=== PATIENT | female | born 1950 | race Two or more races ===

== ENCOUNTER 2021-06-06 11:26 | Outpatient (CLI) | payer MEDICARE, OTHER ==
[2021-06-14] MEDS ORDERED: ASPI-992 PO (08:20)
[2021-06-14] MEDS ORDERED: RIVA10TA PO (08:20)
[2021-06-14] MEDS ORDERED: ONDA4TAB5 PO (11:10)
== END 2021-06-06 23:59 | disposition home or self-care (01) ==
LOC: LAB 11:26
PROVIDERS: ATTEND Specialist
DX: Z01.812 Encounter for preprocedural laboratory examination (principal); Z20.822 Contact with and (suspected) exposure to COVID-19
CPT/HCPCS: C9803; U0003

== ENCOUNTER 2021-06-12 05:02 | Inpatient (IN) | payer MEDICARE, OTHER ==
[~2021-06-12] VITALS: Ht 152.4 cm; Wt 72.6 kg
--- NOTE | 2021-06-12 05:18 | NUR ---
MS RN ADMITTING PATIENT CAME IN AT THIS TIME, AMBULATORY. A/OX4. FARSI SPEAKING ONLY. HAD TO CALL [facility] FOR ADMISSION PROCESS. PATIENT HAS NO S/S OF APPARENT DISTRESS AND DENIES PAIN. PATIENT WISHES TO BE FULL CODE AT THIS TIME. PATIENT DENIES ANY HISTORY AND REPORTS BEING ALLERGIC TO CEPHALEXIN. PER PATIENT, SHE HAS BEEN NPO SINCE MIDNIGHT. AWARE OF RIGHT TOTAL KNEE ARTHROPLASTY PROCEDURE FOR TODAY. CONSENT SIGNED. CHECK LIST DONE AND COMPLETED. ID BAND ON. WILL CONTINUE WITH CARE PLAN.
[2021-06-12] MEDS ORDERED: ANESTHESIA TRAY IN PYXIS 1 EA TRAY MC ONE (06:15)
[2021-06-12] MEDS ORDERED: POLYMYXIN B SULFATE 500,000 UNITS ONE (06:16)
[2021-06-12] MEDS ORDERED: BUPIVACAINE 0.5 % PF 150 MG/30 ML VIAL ONE ×2 (06:16→07:05)
--- NOTE | 2021-06-12 06:30 | NUR ---
MS RN NOTE PATIENT TAKEN DOWN BY OR AT THIS TIME.
[2021-06-12 06:34] VITALS: BP 154/73
[2021-06-12] MEDS ORDERED: HYDROMORPHONE INJ 2 MG/ML DISP.SYRIN ONE (07:00)
[2021-06-12] MEDS ORDERED: CLINDAMYCIN 900 MG/6 ML VIAL ONE (07:00)
[2021-06-12] MEDS ORDERED: TRANEXAMIC ACID 3,000 MG in SODIUM CHLORIDE IRRIG SOLUTION 70 ML IR ONE (07:30)
--- NOTE | 2021-06-12 07:30 | NUR ---
REPORT GIVEN TO ANGI FOR CONTINUITY OF CARE.
--- NOTE | 2021-06-12 08:07 | NUR ---
MS/RN OPENING NOTE PATIENT CURRENTLY IN DAY SURGERY AND NOT IN ROOM AT THIS TIME.
[2021-06-12] MEDS ORDERED: DULCOLAX 10 MG/SUPP.RECT RC PRN (09:00)
[2021-06-12] MEDS ORDERED: COLACE 250 MG CAPSULE PO PRN (09:00)
[2021-06-12] MEDS ORDERED: TYLENOL 650 MG TABLET PO PRN (09:00)
[2021-06-12] MEDS ORDERED: SENOKOT 8.6 MG TABLET PO PRN (09:00)
[2021-06-12] MEDS ORDERED: AMBIEN 5 MG TABLET PO PRN (09:00)
--- NOTE | 2021-06-12 09:50 | NUR ---
M/S RN NOTES RECEIVED PATIENT FROM OR. S/P R KNEE REPLACEMENT SURGERY W/ . PATIENT IS A/O X4. PATIENT FAMILY MEMBER CURRENTLY AT BEDSIDE. VITAL SIGNS FOLLOWS 151/78, HR 60, 97.7, RR 18,O2 SAT 97% ON ROOM AIR. NO COMPLAINTS OF PAIN AT THIS TIME.WILL CONTINUE TO MONITOR Pt.
[2021-06-12 10:00] VITALS: BP 133/86
[2021-06-12] MEDS ORDERED: HYDROCODONE/APAP 5/325MG TABLET PO PRN ×2 (10:00→13:00)
[2021-06-12] MEDS ORDERED: DONE10TA44 PO (11:26)
[2021-06-12] MEDS ORDERED: ICOS1CAP PO (11:26)
[2021-06-12] MEDS ORDERED: FENO160T PO (11:26)
[2021-06-12] MEDS ORDERED: ASPI-1169 PO (11:26)
[2021-06-12] MEDS ORDERED: FLUO20CA42 PO (11:26)
[2021-06-12] MEDS ORDERED: ATOR20TA PO (11:26)
[2021-06-12] MEDS ORDERED: PROP10TA10 PO (11:26)
[2021-06-12] MEDS ORDERED: FINA5TAB11 PO (11:26)
[2021-06-12] MEDS ORDERED: CYCL30DR EACHEYE (11:26)
[2021-06-12] MEDS ORDERED: MEMA10TA56 PO (11:26)
[2021-06-12] MEDS ORDERED: ALPR1TAB7 PO (11:26)
[2021-06-12] MEDS ORDERED: PANTOPRAZOLE 40 MG TABLET.DR PO SCH (12:00)
[2021-06-12] MEDS ORDERED: MAGNESIUM HYDROXIDE 30 ML UDC PO PRN (12:30)
[2021-06-12] MEDS ORDERED: ACETAMINOPHEN 325 MG TABLET PO PRN (12:30)
[2021-06-12] MEDS ORDERED: MAG HYDROX/AL HYDROX/SIMETH 30 ML UDC PO PRN (12:30)
[2021-06-12] MEDS ORDERED: ONDANSETRON HCL/PF 4 MG/2 ML VIAL IVP PRN (12:30)
[2021-06-12] MEDS ORDERED: Z GUARD REMEDY 2 OZ OINT TP PRN (12:30)
[2021-06-12] MEDS: IV D5/0.45 NACL 1,000 ML IV PRN (12:45)
[2021-06-12] MEDS: CLINDAMYCIN 600 MG in IV D5W 50 ML IV SCH ×2 (12:45→19:00)
[2021-06-12] MEDS ORDERED: PANTOPRAZOLE 40 MG TABLET.DR PO ONE (13:00)
[2021-06-12] MEDS ORDERED: ALPRAZOLAM 1 MG TABLET PO PRN (13:00)
[2021-06-12] MEDS ORDERED: oxyCODONE IR immediate release 5 MG PO ONE (14:57)
[2021-06-12] MEDS ORDERED: ANCEF 1 G in IV D5W 50 ML IV SCH (15:00)
[2021-06-12] MEDS ORDERED: oxyCODONE IR immediate release 5 MG PO PRN (15:00)
[2021-06-12] MEDS ORDERED: LEVOFLOXACIN 500 MG /D5W 100ML 500 MG in PREMIX 1 EA IV ONE (15:00)
[2021-06-12] MEDS ORDERED: diphenhydrAMINE HCL 25 MG CAPSULE PO PRN (15:30)
[2021-06-12] MEDS ORDERED: MENTHOL/CETYLPYRD (CEPACOL) 1 LOZ LOZENGE PO PRN (15:30)
[2021-06-12] MEDS: ZOFRAN 4mg/2ML IV PRN (15:44)
[2021-06-12 16:00] VITALS: BP 118/67
[2021-06-12] MEDS: VASCEPA 1 GM PO SCH (16:58)
[2021-06-12] MEDS ORDERED: PRILOSEC 20 MG PO SCH (17:00)
[2021-06-12] MEDS ORDERED: ALPRAZOLAM 1 MG TABLET PO SCH (17:00)
[2021-06-12] MEDS: MEMANTINE HCL 5 MG TABLET PO SCH (17:01)
[2021-06-12] MEDS: PROPRANOLOL HCL 10 MG TABLET PO SCH (17:02)
--- NOTE | 2021-06-12 18:53 | NUR ---
RN CLOSING NOTES PATIENT IN BED SLEEPING, AWAKENS TO VERBAL STIMULI. A/O x4. NO S/S OF PAIN NOTED AT THIS TIME. Pt IS ON ROOM AIR AND TOLERATING WELL. NO SIGNS OF SHORTNESS OF BREATH NOTED. Pt HAS IV ACCESS ON L UPPER ARM, MIDLINE, PATENT , INTACT, & FLUSHES WELL. SAFETY PRECAUTIONS IN PLACE: BED LOCKED AND IN LOWEST POSITION. DAUGHTER CURRENTLY AT BEDSIDE. CALL LIGHT AND BEDSIDE TABLE WITHIN REACH. WILL ENDORSE PATIENT TO SLAT BASKET MAKER HELPER. Addendum: 06/12/21 at 1907 by MAVERICK BENRABE RN CORRECTION: IV R HAND 18 G
[2021-06-12] MEDS: oxyCODONE IR immediate release 5 MG PO PRN (19:30)
--- NOTE | 2021-06-12 19:31 | NUR ---
ADMINISTERED OXY FOR PAIN PER MD ORDER. WILL CONTINUE TO MONITOR.
--- NOTE | 2021-06-12 19:48 | NUR ---
MS RN OPENING NOTES RECEIVED PT IN BED, AWAKE, WITH DAUGHTER AT BEDSIDE. AOx4, FARSI SPEAKING. ON RA AND TOLERATING WELL. NO SOB NOTED. NO S/SX OF RESPIRATORY DISTRESS NOTED. IV ACCESS IN R HAND #18 RUNNING D5 1/2NS @ 125 ML/HR. PATIENT STATES SHE HAS 6/10 PAIN PER DAUGHTER'S TRANSLATION. ALSO PROVIDED INCENTIVE SPIROMETER WITH EDUCATION AND DAUGHTER ASSISTED IN TRANSLATING. SAFETY PRECAUTIONS IN PLACE: BED IN LOWEST, LOCKED POSITION, SIDERAILS UPx2, AND BRAKES ON. TABLE AND CALL LIGHT WITHIN REACH. WILL CONTINUE TO MONITOR.
[2021-06-12 20:00] VITALS: BP 116/62
[2021-06-12] MEDS: RIVAROXABAN 10 MG TABLET PO SCH (20:49)
--- NOTE | 2021-06-12 23:28 | NUR ---
ADMINISTERED OXYCODONE FOR PAIN PER MD ORDER. VS WNL. WILL CONTINUE TO MONITOR.
[2021-06-13] MEDS: CLINDAMYCIN 600 MG in IV D5W 50 ML IV SCH (00:39)
[2021-06-13] MEDS: IV D5/0.45 NACL 1,000 ML IV PRN ×3 (03:16→19:23)
[2021-06-13] MEDS ORDERED: PRILOSEC 20 MG PO SCH ×2 (05:41→05:48)
[2021-06-13] MEDS: oxyCODONE IR immediate release 5 MG PO PRN ×2 (06:01→09:47)
--- NOTE | 2021-06-13 06:01 | NUR ---
ADMINISTERED OXYCODONE FOR PAIN PER MD ORDER. VS WNL. WILL CONTINUE TO MONITOR.
[2021-06-13 06:35] LABS: BASOPHILS % (AUTO) 0.2 % (0.0-2.0); EOSINOPHILS % (AUTO) 0.4 % (0.0-6.0); HEMATOCRIT 28 % (33-45); HEMOGLOBIN 9.4 g/dL (11.5-14.8); LYMPHOCYTES # (AUTO) 1.8 K/uL (0.8-4.8); LYMPHOCYTES % (AUTO) 21.9 % (20.0-44.0); MEAN CORPUSCULAR HGB CONC 34 g/dl (31.0-36.0); MEAN CORPUSCULAR VOLUME 84 fL (82-100); MONOCYTES # (AUTO) 0.9 K/uL (0.1-1.30); MONOCYTES % (AUTO) 11.1 % (2.0-12.0); NEUTROPHILS # (AUTO) 5.4 K/uL (1.8-8.9); NEUTROPHILS % (AUTO) 66.4 % (43.0-81.0); PLATELET COUNT (AUTO) 237 K/uL (150-450); RED BLOOD CELL COUNT(AUTO) 3.32 MIL/uL (4.0-5.2); WHITE BLOOD COUNT (AUTO) 8.1 K/uL (4.3-11.0)
--- NOTE | 2021-06-13 06:54 | NUR ---
MS RN CLOSING NOTES PT IN BED, AWAKE. AOx4, FARSI SPEAKING. ON RA AND TOLERATING WELL. NO SOB NOTED. NO S/SX OF RESPIRATORY DISTRESS NOTED. IV ACCESS IN R HAND #18 RUNNING D5 1/2NS @ 125 ML/HR. TREATED PAIN THROUGHOUT SHIFT. ALL NEEDS MET. PT KEPT CLEAN AND DRY. PROVIDED INCENTIVE SPIROMETER WITH EDUCATION AND DAUGHTER ASSISTED IN TRANSLATING. SAFETY PRECAUTIONS IN PLACE: BED IN LOWEST, LOCKED POSITION, SIDERAILS UPx2, AND BRAKES ON. TABLE AND CALL LIGHT WITHIN REACH. WILL ENDORSE TO ONCOMING SHIFT FOR KEMAL.
[2021-06-13 07:09] LABS: THYROID STIMULATING HORMONE 0.531 uIU/mL (0.358-3.74)
[2021-06-13 07:17] LABS: CALCIUM, SERUM 8.3 mg/dL (8.5-10.1); CREATININE 0.8 mg/dL (0.6-1.3); MAGNESIUM 1.7 mg/dL (1.8-2.4); PHOSPHORUS 3.6 mg/dL (2.5-4.9)
--- NOTE | 2021-06-13 07:25 | NUR ---
MS RN OPENING NOTES RECEIVED PT IN BED AWAKE, A/O X4, FARSI SPEAKING, DENIES PAIN OR ANY DISCOMFORTS AT THIS TIME. RIGHT LEG WITH DRESSING C/D/I AND IMMOBILIZER IN PLACE. ON ROOM AIR, BREATHING EVEN AND UNLABORED. IV ACCESS ON R HAND G#18 RUNNING D5 1/2NS @ 125 ML/HR, NO S/SX OF INFILTRATION NOTED. SAFETY PRECAUTIONS IN PLACE: BED IN LOWEST, LOCKED POSITION, SIDE-RAILS UP x2, AND BRAKES ON. BEDSIDE TABLE AND CALL LIGHT WITHIN REACH. WILL CONTINUE TO MONITOR.
[2021-06-13] MEDS ORDERED: PANTOPRAZOLE 40 MG TABLET.DR PO SCH (07:30)
[2021-06-13 08:00] VITALS: BP 118/55
[2021-06-13] MEDS: FLUOXETINE HCL 20 MG CAPSULE PO SCH (08:12)
[2021-06-13] MEDS: DONEPEZIL 5 MG TABLET PO SCH (08:12)
[2021-06-13] MEDS: VASCEPA 1 GM PO SCH ×2 (08:12→17:09)
[2021-06-13] MEDS: FENOFIBRATE 160 MG PO SCH (08:12)
[2021-06-13] MEDS: MEMANTINE HCL 5 MG TABLET PO SCH ×2 (08:13→17:10)
[2021-06-13] MEDS: PROPRANOLOL HCL 10 MG TABLET PO SCH ×2 (08:13→17:10)
[2021-06-13] MEDS ORDERED: FINASTERIDE (5 MG) 5 MG TABLET PO SCH (09:00)
[2021-06-13] MEDS ORDERED: ASPIRIN 81 MG TAB.CHEW PO SCH (09:00)
[2021-06-13] MEDS ORDERED: MAGNESIUM OXIDE 400 MG TABLET PO ONE (09:30)
--- NOTE | 2021-06-13 09:51 | NUR ---
RN NOTES PT C/O RIGHT LEG PAIN, 5/10 SCALE, PRN OXY 10MG PO GIVEN AT 0947. WILL CONTINUE TO MONITOR AND REASSESS PT.
[2021-06-13] MEDS: ZOFRAN 4mg/2ML IV PRN ×3 (11:12→20:12)
--- NOTE | 2021-06-13 11:14 | NUR ---
MS RN NOTES PATIENT COMPLAINED OF NAUSEA AFTER PT ZOFRAN 4MG/2ML GIVEN ORDERED PRN IV PUSH AT 1112
[2021-06-13] MEDS: HYDROMORPHONE 1 MG/1 ML DISP.SYRIN IM/IV/SC PRN ×2 (11:40→20:05)
--- NOTE | 2021-06-13 15:27 | NUR ---
MS RN NOTE PATIENT HAS CPM MACHINE PLACED ONGOING BY PHYSICAL THERAPIST.
[2021-06-13] MEDS: PRILOSEC 20 MG PO SCH (16:15)
[2021-06-13 16:24] VITALS: BP 138/63
[2021-06-13] MEDS: RESTASIS EYE EACHEYE SCH (17:09)
[2021-06-13] MEDS: RIVAROXABAN 10 MG TABLET PO SCH (17:11)
--- NOTE | 2021-06-13 18:52 | NUR ---
MS RN CLOSING NOTES PT IN BED AWAKE AT THIS TIME, A/O X4, FARSI SPEAKING BUT UNDERSTANDS A LITTLE BIT OF UKRAINIAN. RIGHT LEG WITH DRESSING C/D/I AND IMMOBILIZER IN PLACE. ON ROOM AIR, BREATHING EVEN AND UNLABORED. IV ACCESS ON R HAND G#18 INTACT WITH IVF OF D5 1/2NS @ 125 ML/HR, NO S/SX OF INFILTRATION NOTED. ALL NEEDS AND CARE ATTENDED WELL. SAFETY PRECAUTIONS IN PLACE: BED IN LOWEST, LOCKED POSITION, SIDE-RAILS UP x2, AND BRAKES ON. BEDSIDE TABLE AND CALL LIGHT WITHIN REACH. WILL ENDORSE KEMAL TO PRESS ASSISTANT AND FEEDER NURSE
--- NOTE | 2021-06-13 19:15 | NUR ---
MS RN OPENING NOTES PT AWAKE IN BED, WITH DAUGHTER AT BEDSIDE. A/OX4, FARSI SPEAKING, UNDERSTANDS SOME GREEK. RESPIRATIONS EVEN/UNLABORED, ON ROOM AIR, MARIANELA. WELL. S/P R-TOTAL KNEE ARTHROPLASTY YESTERDAY, WITH R-LEG DRESSING C/D/I AND IMMOBILIZER IN PLACE. IV SITE: #18G INTACT/PATENT, RUNNING D5 1/2 NS @125ML/HR. PT IN NO ACUTE DISTRESS. SAFETY MEASURES IN PLACE, BED IN LOWEST LOCKED POSITION, S/R UPX2, CALL LIGHT WITHIN REACH. WILL CONT TO MONITOR.
[2021-06-13 20:00] VITALS: BP 136/69
[2021-06-13] MEDS ORDERED: ATORVASTATIN 10 MG TABLET PO SCH (22:00)
[2021-06-14] MEDS: HYDROMORPHONE 1 MG/1 ML DISP.SYRIN IM/IV/SC PRN ×3 (02:24→10:53)
[2021-06-14] MEDS: IV D5/0.45 NACL 1,000 ML IV PRN (04:34)
[2021-06-14] MEDS: PRILOSEC 20 MG PO SCH (06:05)
--- NOTE | 2021-06-14 06:49 | NUR ---
MS RN CLOSING NOTES PT RESTING IN BED, EASILY AROUSABLE TO STIMULI. NO C/O PAIN AT THIS TIME. ON ROOM AIR. RESPIRATIONS EVEN/UNLABORED. CONTINUES ON IVF OF D5 1/2 NS @125ML/HR. MARIANELA WELL. PT ASSISTED TO BEDSIDE COMMODE X5 THIS SHIFT. VOIDED ONLY. NO BM THIS SHIFT. NO ACUTE EVENTS DURING THE NIGHT. SAFETY MEASURES MAINTAINED. ALL NEEDS ATTENDED TO.
[2021-06-14 06:50] LABS: BASOPHILS % (AUTO) 0.3 % (0.0-2.0); EOSINOPHILS % (AUTO) 2.7 % (0.0-6.0); HEMATOCRIT 26 % (33-45); LYMPHOCYTES # (AUTO) 1.4 K/uL (0.8-4.8); LYMPHOCYTES % (AUTO) 16.1 % (20.0-44.0); MEAN CORPUSCULAR HGB CONC 34 g/dl (31.0-36.0); MEAN CORPUSCULAR VOLUME 83 fL (82-100); MONOCYTES # (AUTO) 0.8 K/uL (0.1-1.30); MONOCYTES % (AUTO) 9.7 % (2.0-12.0); NEUTROPHILS % (AUTO) 71.2 % (43.0-81.0); PLATELET COUNT (AUTO) 231 K/uL (150-450); RED BLOOD CELL COUNT(AUTO) 3.17 MIL/uL (4.0-5.2); WHITE BLOOD COUNT (AUTO) 8.4 K/uL (4.3-11.0)
--- NOTE | 2021-06-14 07:30 | NUR ---
MS RN OPENING NOTES RECEIVED PT AWAKE IN BED IN NO ACUTE SIGNS OF DISTRESS. A/O X4, FARSI SPEAKING, DENIES PAIN OR ANY DISCOMFORTS AT THIS TIME. DRESSING ON RIGHT LEG C/D/I WRAPPED WITH LYNDSEY BANDAGE. ON ROOM AIR, BREATHING EVEN AND UNLABORED. IV ACCESS ON R HAND G#18 RUNNING D5 1/2NS @ 125 ML/HR, NO S/SX OF INFILTRATION NOTED. SAFETY PRECAUTIONS IN PLACE: BED IN LOWEST, LOCKED POSITION, SIDE-RAILS UP X2. BEDSIDE TABLE AND CALL LIGHT WITHIN REACH. WILL CONTINUE TO MONITOR PT ACCORDINGLY..
[2021-06-14 07:55] LABS: CALCIUM, SERUM 8.6 mg/dL (8.5-10.1); CREATININE 0.8 mg/dL (0.6-1.3); PHOSPHORUS 2.7 mg/dL (2.5-4.9)
[2021-06-14 08:00] VITALS: BP 132/67
[2021-06-14] MEDS: DONEPEZIL 5 MG TABLET PO SCH (08:15)
[2021-06-14] MEDS: MEMANTINE HCL 5 MG TABLET PO SCH (08:15)
[2021-06-14] MEDS: FLUOXETINE HCL 20 MG CAPSULE PO SCH (08:15)
[2021-06-14 08:16] VITALS: BP 132/67
[2021-06-14] MEDS: PROPRANOLOL HCL 10 MG TABLET PO SCH (08:16)
[2021-06-14] MEDS: VASCEPA 1 GM PO SCH (08:16)
[2021-06-14] MEDS: FENOFIBRATE 160 MG PO SCH (08:17)
[2021-06-14] MEDS: RESTASIS EYE EACHEYE SCH (08:17)
[2021-06-14] MEDS ORDERED: RIVA10TA PO (08:20)
[2021-06-14] MEDS ORDERED: ASPI-992 PO (08:20)
[2021-06-14] MEDS ORDERED: ONDA4TAB5 PO (11:10)
--- NOTE | 2021-06-14 13:44 | NUR ---
RN DISCHARGED NOTES PT DISCHARGED HOME WITH HOME HEALTH IN STABLE CONDITION. A/O X4. FARSI SPEAKING. V/S TAKEN, STABLE AND RECORDED. DRESSING ON RIGHT KNEE C/D/I WRAPPED WITH LYNDSEY BANDAGE. PT ABLE TO WALKED WITH FWW WITH PHYSICAL THERAPIST THIS MORNING. IV ACCESS ON RIGHT HAND REMOVED WITH NO ACTIVE BLEEDING NOTED, DRY PRESSURE DRESSING APPLIED AT SITE. HEALTH TEACHINGS /DISCHARGED INSTRUCTIONS GIVEN TO PT AND HER DAUGHTER WITH VERBALIZATION OF UNDERSTANDING. PT LEFT UNIT AT 1330 VIA GURNEY ACCOMPANIED BY 2 EMT'S FROM [facility]. CHARGE NURSE AWARE OF DISCHARGE. .
[2021-06-27] MEDS ORDERED: ASPIRIN 325 MG TABLET PO SCH (09:00)
== END 2021-06-14 13:30 | disposition home health service (06) | DRG 470 ==
LOC: DS 05:02 → MED 05:05
PROVIDERS: ADMIT Registered Nurse; ATTEND Registered Nurse
PROC: 0SRC0J9 Replacement of Right Knee Joint with Synthetic Substitute, Cemented, Open Approach (ICD-10-PCS; principal; 2021-06-12)
DX: M17.11 Unilateral primary osteoarthritis, right knee (principal); F03.90 Unspecified dementia, unspecified severity, without behavioral disturbance, psychotic disturbance, mood disturbance, and anxiety; F41.9 Anxiety disorder, unspecified; E66.9 Obesity, unspecified; E78.5 Hyperlipidemia, unspecified; I10 Essential (primary) hypertension; Z79.01 Long term (current) use of anticoagulants; Z68.31 Body mass index [BMI] 31.0-31.9, adult; I35.1 Nonrheumatic aortic (valve) insufficiency
CPT/HCPCS: 36415; 80048-TC; 80061-TC; 83735-TC; 84100-TC; 84443-TC; 85025-TC; 88305-TC; 88311-TC; 97110-TC; 97116-TC; 97530-TC; 97760-TC; A4216; A4217; C1713; C1776; G0378; J1100; J1170; J1885; J1956; J2405; J2704; J3490; J7030; J7050; J7060; L1830

== ENCOUNTER 2021-10-09 10:23 | Outpatient (CLI) | payer MEDICARE, OTHER ==
[~2021-10-09 10:23] MED LIST: ALPR1TAB7 PO; ASPI-1169 PO; ASPI-992 PO; ATOR20TA PO; CYCL30DR EACHEYE; DONE10TA44 PO; FENO160T PO; FINA5TAB11 PO; FLUO20CA42 PO; ICOS1CAP PO; MEMA10TA56 PO; ONDA4TAB5 PO; PROP10TA10 PO; RIVA10TA PO
== END 2021-10-09 23:59 | disposition home or self-care (01) ==
LOC: LAB 10:23
PROVIDERS: ATTEND Specialist
DX: Z01.812 Encounter for preprocedural laboratory examination (principal); Z20.822 Contact with and (suspected) exposure to COVID-19
CPT/HCPCS: C9803; U0003

== ENCOUNTER 2021-10-16 05:08 | Inpatient (IN) | payer MEDICARE, OTHER ==
[~2021-10-16] VITALS: Ht 160 cm; Wt 71.2 kg
[~2021-10-16 05:08] MED LIST changes: +ANESTHESIA TRAY IN PYXIS 1 EA TRAY MC ONE
[2021-10-16 05:30] VITALS: BP 139/73
--- NOTE | 2021-10-16 05:30 | NUR ---
MS OIL TRANSPORT DRIVER NOTES RECEIVED FROM HOME THIS 71 YO FEMALE,DANISH SPEAKING,ACCOMPANIED BY DAUGHTER,GOING FOR SURGERY OF LEFT KNEE BY DR SEGURA.PRE OP DONE,SALINE LOCK PLACE ON LEFT AC #20,NPO SINCE MIDNIGHT.WITH KNOWN ALLERGY TO CEPHALEXIN.DENIES PAIN AT THE MOMENT.CONSENT FOR SURGERY SIGNED BY PATIENT,ALONG WITH ANESTHESIA AND BLOOD TRANSFUSION FORM WAS SIGNED.CALL LIGHT IN REACH,NEEDS ANTICIPATED.
--- NOTE | 2021-10-16 06:15 | NUR ---
MS RN NOTES TRIMMING DEPARTMENT BLOCKER BY O.R.TECH BY BED THIS TIME,STABLE. WILL ENDORSE TO DAY NURSE FOR KEMAL.
[2021-10-16] MEDS ORDERED: POLYMYXIN B SULFATE 500,000 UNITS ONE (06:42)
[2021-10-16] MEDS ORDERED: BUPIVACAINE 0.5 % PF 150 MG/30 ML VIAL ONE (06:42)
[2021-10-16] MEDS ORDERED: HYDROMORPHONE INJ 2 MG/ML DISP.SYRIN ONE (06:49)
[2021-10-16] MEDS ORDERED: BUPIVACAINE MPF 0.5% W/EPI INJ 30 ML VIAL ONE (06:49)
[2021-10-16] MEDS ORDERED: TRANEXAMIC ACID 3,000 MG in SODIUM CHLORIDE IRRIG SOLUTION 70 ML IR ONE (07:00)
--- NOTE | 2021-10-16 07:47 | NUR ---
Patient not seen in the unit, per previous shift's endorsement patient is in OR right now for procedure.
[2021-10-16] MEDS ORDERED: MAGNESIUM HYDROXIDE 30 ML UDC PO PRN (08:30)
[2021-10-16] MEDS ORDERED: Z GUARD REMEDY 4 OZ OINT TP PRN (08:30)
[2021-10-16] MEDS ORDERED: MAG HYDROX/AL HYDROX/SIMETH 30 ML UDC PO PRN ×2 (08:30→12:00)
[2021-10-16] MEDS ORDERED: ACETAMINOPHEN 325 MG TABLET PO PRN (08:30)
[2021-10-16] MEDS ORDERED: ONDANSETRON HCL/PF 4 MG/2 ML VIAL IVP PRN (08:30)
[2021-10-16] MEDS ORDERED: ALPRAZOLAM 1 MG TABLET PO PRN (08:30)
[2021-10-16] MEDS ORDERED: Medication Not On Formulary EA (Ondansetron Hcl (Zofran) 1 TAB) PO SCH (08:30)
[2021-10-16] MEDS ORDERED: BUPIVACAINE 0.25% 75 MG/30 ML VIAL ONE (08:31)
[2021-10-16] MEDS ORDERED: FENTANYL PF 100MCG/2ML AMPUL ONE (09:06)
[2021-10-16] MEDS ORDERED: ONDANSETRON HCL/PF 4 MG/2 ML VIAL ONE (09:16)
[2021-10-16] MEDS ORDERED: BISACODYL SUPP (10 MG) 10 MG/SUPP.RECT SUPP.RECT RC PRN (09:30)
[2021-10-16] MEDS ORDERED: ZOLPIDEM TARTRATE 5 MG TABLET PO PRN (09:30)
[2021-10-16] MEDS ORDERED: SENNOSIDES 8.6 MG TABLET PO PRN (09:30)
[2021-10-16] MEDS ORDERED: DOCUSATE SODIUM 250 MG CAPSULE PO PRN (09:30)
[2021-10-16] MEDS ORDERED: HYDROMORPHONE 1 MG/1 ML DISP.SYRIN ONE (09:42)
[2021-10-16] MEDS ORDERED: diphenhydrAMINE HCL 50 MG/ML VIAL ONE (10:00)
--- NOTE | 2021-10-16 10:35 | NUR ---
Patient came back from surgery around 1035am, stable condition, no apparent distress noted, denies any pain or discomfort at this time, no shortness of breath, afebrile, no respiratory distress. Patient S/P left total knee arthroplasty, subcutaneous lateral release by Dr. Siegel. Patient's left lower extremity covered with estella bandage, no s/s of circulation impairment noted at this time, skin warm to touch, no pallor or cyanosis noted, pulse present during shift, no swelling, no bleeding, no unusual odor noted at this time. Patient came back with medication orders faxed to pharmacy by PACU nurse. Call light left within reach, will monitor closely for any changes.
--- NOTE | 2021-10-16 10:35 | NUR ---
Patient came back from surgery around 1035am, stable condition, no apparent distress noted, denies any pain or discomfort at this time, no shortness of breath, afebrile, no respiratory distress. Patient S/P left total knee arthroplasty, subcutaneous lateral release by Dr. Siegel. Patient came back with medication orders faxed to pharmacy by PACU nurse. Call light left within reach, will monitor closely for any changes.
[2021-10-16] MEDS: FINASTERIDE (5 MG) 5 MG TABLET PO SCH (11:05)
[2021-10-16] MEDS: FENOFIBRATE NANOCRYS (145 MG) 145 MG TABLET PO SCH (11:05)
[2021-10-16] MEDS: MEMANTINE HCL 5 MG TABLET PO SCH ×2 (11:05→16:51)
[2021-10-16] MEDS: FLUOXETINE HCL 20 MG CAPSULE PO SCH (11:05)
[2021-10-16] MEDS: PROPRANOLOL HCL 10 MG TABLET PO SCH ×2 (11:06→16:51)
[2021-10-16] MEDS: DONEPEZIL 5 MG TABLET PO SCH (11:06)
[2021-10-16] MEDS: ATORVASTATIN 10 MG TABLET PO SCH (11:06)
[2021-10-16] MEDS: IV D5/0.45 NACL 1,000 ML IV PRN (11:19)
[2021-10-16] MEDS ORDERED: MENTHOL/CETYLPYRD (CEPACOL) 1 LOZ LOZENGE PO PRN (12:00)
[2021-10-16] MEDS ORDERED: PANTOPRAZOLE 40 MG TABLET.DR PO SCH ×3 (12:00→17:00)
[2021-10-16] MEDS ORDERED: diphenhydrAMINE HCL 25 MG CAPSULE PO PRN (12:00)
[2021-10-16] MEDS ORDERED: oxyCODONE IR immediate release 5 MG PO PRN (12:00)
[2021-10-16] MEDS: ONDANSETRON HCL/PF 4 MG/2 ML VIAL IV PRN ×2 (12:16→20:21)
[2021-10-16] MEDS: ANCEF 1 GM/50 ML D5W IV SCH ×4 (15:35→23:05)
[2021-10-16 16:00] VITALS: BP 135/58
[2021-10-16] MEDS: HYDROMORPHONE 1 MG/1 ML DISP.SYRIN IM/IV/SC PRN ×3 (16:04→23:29)
[2021-10-16] MEDS: OMEPRAZOLE 20 MG PO SCH (16:41)
[2021-10-16] MEDS: DOCUSATE SODIUM 100 MG CAPSULE PO SCH (16:51)
--- NOTE | 2021-10-16 18:39 | NUR ---
RN CLOSING NOTES Patient lying in bed, no shortness of breath, respirations even and unlabored, remained afebrile during shift, no dizziness, no palpitations, no chest pain. All due medications given per MD order and tolerated well. Patient S/P left total knee arthroplasty, subcutaneous release today with Dr. Siegel, surgical site dressing clean, dry and intact, no unusual odor, no visible signs of bleeding on the dressing, site wrapped in estella bandage no s/s of circulation impairment noted at this time, skin warm to touch, no pallor or cyanosis noted, pulse present during shift, no swelling noted at this time. Patient encouraged to use incentive spirometer when awake. Pain medication given per MD order as needed when non pharmacological measures ineffective, noted with help. Kept clean and dry, call light left within reach, all needs attended, aspiration precautions observed at all times, kept head of bed elevated, safety precautions in place, frequent visual checks rendered, brakes locked, side rails up X 2, will endorse to next shift for continuity of care.
--- NOTE | 2021-10-16 19:30 | NUR ---
MS RN NOTES RECEIVED ON BED,WITH FAMILY MEMBERS AT BEDSIDE,A/O X3,STATUS LEFT KNEE ARTHROPLASTY,DRESSING INTACT AND DRY,ON KNEE IMMOBILIZER AT THE MOMENT,PRESENT IVF D5 1/2 NS AT 75ML/HR RATE INFUSING WELL ON LEFT AC SALINE LOCK,VIA IV PUMP.CALL LIGHT IN REACH,NEEDS ANTICIPATED.
[2021-10-16 20:00] VITALS: BP 131/63
--- NOTE | 2021-10-16 20:10 | NUR ---
MS RN NOTES C/O LEFT KNEE PAIN 8/10 ON PAIN SCALE.,MEDICATED WITH DILAUDID 0.5 MG IV ORDERED.WILL MONITOR FOR RELIEF.
--- NOTE | 2021-10-16 20:21 | NUR ---
MS RN NOTES FEELING NAUSEATED,ZOFRAN 4MG IV GIVEN ORDERED.HOB ELEVATED.
--- NOTE | 2021-10-16 23:00 | NUR ---
MS RN NOTES LAST DOSE OF IV ANCEF 1 GM SHAVON.
--- NOTE | 2021-10-16 23:29 | NUR ---
MS RN NOTES PAIN MANAGEMENT C.O LEFT KNEE PAIN 9/10 ON PAIN SCALE,DILAUDID 0.5MG IV GIVEN ORDERED.
[2021-10-17] MEDS: oxyCODONE IR immediate release 5 MG PO PRN ×3 (01:59→08:02)
--- NOTE | 2021-10-17 01:59 | NUR ---
MS RN NOTES AWAKE,JUST VOIDED PER BEDPAN.C/O LEFT KNEE PAIN 7/10 ON PAIN SCALE.OXY IR 10MG PO GIVEN ORDERED FOR MODERATE PAIN.MONITOR FOR NAUSEA.
[2021-10-17] MEDS: IV D5/0.45 NACL 1,000 ML IV PRN (02:49)
--- NOTE | 2021-10-17 04:51 | NUR ---
MS RN NOTES AWAKE,VOIDED PER BEDPAN.C/O PAIN 5/10 0N PAIN SCALE,OXY IR 10MG PO GIVEN ORDERED FOR MODERATE PAIN
--- NOTE | 2021-10-17 05:00 | NUR ---
MS RN NOTES PAIN MANAGEMENT DOCTOR CALLED,GAVE UPDATE IN REGARDS TO PATIENT PAIN MANAGEMENT,WITH ORDER TO CONVERT IV TO SALINE LOCK,NOTED AND CARRIED OUT.
--- NOTE | 2021-10-17 05:30 | NUR ---
MS RN NOTES MD VISIT SEEN BY DR DUONG,PAIN MANAGEMENT DOCTOR,WITH ORDERS NOTED AND CARRIED OUT.
[2021-10-17] MEDS ORDERED: ALPRAZOLAM 0.5 MG TABLET PO PRN (06:00)
[2021-10-17] MEDS: OMEPRAZOLE 20 MG PO SCH ×2 (06:13→16:30)
--- NOTE | 2021-10-17 06:13 | NUR ---
MS RN NOTES DUE OMEPRAZOLE 2 CAPSULE ADMINISTERED EARLY PER PATIENT REQUEST.
--- NOTE | 2021-10-17 06:18 | NUR ---
MS RN NOTES FAIRLY RESTED AT NIGHT,PAIN MANAGEMENT EFFECTIVE,IVF CONVERTED TO SALINE LOCK ORDERED BY DR DUONG.NAUSEA IMPROVED,NO VOMITING NOTED.ALL DUE MEDS ADMINISTERED,MORNING CARE RENDERED BY [address].CALL LIGHT IN REACH,NEEDS ATTENDED.WILL ENDORSE TO DAY NURSE FOR KEMAL.
[2021-10-17 07:27] LABS: BASOPHILS % (AUTO) 0.2 % (0.0-2.0); EOSINOPHILS % (AUTO) 2.2 % (0.0-6.0); HEMATOCRIT 25 % (33-45); HEMOGLOBIN 8.2 g/dL (11.5-14.8); LYMPHOCYTES # (AUTO) 1.3 K/uL (0.8-4.8); LYMPHOCYTES % (AUTO) 13.6 % (20.0-44.0); MEAN CORPUSCULAR HGB CONC 33 g/dl (31.0-36.0); MEAN CORPUSCULAR VOLUME 79 fL (82-100); MONOCYTES # (AUTO) 0.8 K/uL (0.1-1.30); MONOCYTES % (AUTO) 8.6 % (2.0-12.0); NEUTROPHILS # (AUTO) 7.3 K/uL (1.8-8.9); NEUTROPHILS % (AUTO) 75.4 % (43.0-81.0); PLATELET COUNT (AUTO) 233 K/uL (150-450); RED BLOOD CELL COUNT(AUTO) 3.15 MIL/uL (4.0-5.2); WHITE BLOOD COUNT (AUTO) 9.6 K/uL (4.3-11.0)
[2021-10-17 08:16] VITALS: BP 135/65
[2021-10-17] MEDS: FENOFIBRATE NANOCRYS (145 MG) 145 MG TABLET PO SCH (08:47)
[2021-10-17] MEDS: MEMANTINE HCL 5 MG TABLET PO SCH ×2 (08:47→17:00)
[2021-10-17] MEDS: ATORVASTATIN 10 MG TABLET PO SCH (08:47)
[2021-10-17] MEDS: DOCUSATE SODIUM 100 MG CAPSULE PO SCH ×2 (08:47→17:00)
[2021-10-17] MEDS: FLUOXETINE HCL 20 MG CAPSULE PO SCH (08:48)
[2021-10-17] MEDS: FINASTERIDE (5 MG) 5 MG TABLET PO SCH (08:48)
[2021-10-17] MEDS: DONEPEZIL 5 MG TABLET PO SCH (08:48)
[2021-10-17] MEDS ORDERED: RIVAROXABAN 10 MG TABLET PO SCH (09:00)
[2021-10-17] MEDS: PROPRANOLOL HCL 10 MG TABLET PO SCH ×2 (09:24→17:00)
[2021-10-17 10:44] LABS: CALCIUM, SERUM 8.5 mg/dL (8.5-10.1); CREATININE 0.7 mg/dL (0.6-1.3); MAGNESIUM 1.8 mg/dL (1.8-2.4); PHOSPHORUS 3.5 mg/dL (2.5-4.9); POTASSIUM 3.9 mmol/L (3.5-5.1)
[2021-10-17] MEDS: HYDROMORPHONE 1 MG/1 ML DISP.SYRIN IM/IV/SC PRN ×2 (11:54→15:00)
[2021-10-17] MEDS: ONDANSETRON HCL/PF 4 MG/2 ML VIAL IV PRN (12:05)
--- NOTE | 2021-10-17 15:00 | NUR ---
MS/RN DILAUDID 0.5ML IV GIVEN FOR PAIN
[2021-10-17 16:00] VITALS: BP 120/61
--- NOTE | 2021-10-17 17:28 | NUR ---
GPS/RN PT IS BEING DISCHARGED. PROPERTY AND MEDICATIONS RETURNED. PAIN MANAGEMENT EFFECTIVE. EXIT CARE INSTRUCTIONS PROVIDED. PT REFUSED DUE MEDS AT TIME OF DISCHARGE.
--- NOTE | 2021-10-17 18:15 | NUR ---
GPS/RN PT DISCHARGED HOME VIA AMBULANCE. DAUGHTER AT BEDSIDE. NO PAIN OR DISTRESS NOTED
[2021-10-18] MEDS ORDERED: ALPRAZOLAM 0.5 MG TABLET PO ONE (05:27)
[2021-10-31] MEDS ORDERED: ASPIRIN 325 MG TABLET PO SCH (09:00)
== END 2021-10-17 18:15 | disposition home health service (06) | DRG 470 ==
LOC: DS 05:08 → MED 05:10
PROVIDERS: ADMIT Internal Medicine; ATTEND Internal Medicine
PROC: 0SRD0J9 Replacement of Left Knee Joint with Synthetic Substitute, Cemented, Open Approach (ICD-10-PCS; principal; 2021-10-16)
DX: M17.12 Unilateral primary osteoarthritis, left knee (principal); K21.9 Gastro-esophageal reflux disease without esophagitis; I10 Essential (primary) hypertension; Z79.82 Long term (current) use of aspirin; Z79.01 Long term (current) use of anticoagulants; Z79.899 Other long term (current) drug therapy; Z88.1 Allergy status to other antibiotic agents; E78.5 Hyperlipidemia, unspecified; F03.90 Unspecified dementia, unspecified severity, without behavioral disturbance, psychotic disturbance, mood disturbance, and anxiety; F32.9 Major depressive disorder, single episode, unspecified
CPT/HCPCS: 36415; 80048-TC; 83735-TC; 84100-TC; 85025-TC; 87081-TC; 88305-TC; 88311-TC; 97116-TC; 97530-TC; 97760-TC; A4217; C1713; C1776; G0378; J0690; J1100; J1170; J1200; J1885; J2405; J2704; J3010; J3490; J7030; J7060; L1830

== ENCOUNTER 2022-04-20 17:41 | Emergency (ER) | payer MEDICARE, OTHER ==
[~2022-04-20] VITALS: Ht 170.2 cm; Wt 72.1 kg
[~2022-04-20 17:41] MED LIST changes: -ANESTHESIA TRAY IN PYXIS 1 EA TRAY MC ONE
--- NOTE | 2022-04-20 18:16 | NUR ---
TO ER BED 13. BIBS FAMILY, SENT BY DR SEGURA TO R/O DVT,LEFT LEG,C/O L LEG PAIN X 1 WEEK. PAIN IS 5/10 ON PAIN SCALE. VITALS ARE WITHIN NORMAL LIMITS. REQUESTING ULTRASOUND.
--- NOTE | 2022-04-20 18:23 | NUR ---
SEEN BY DR CHANDLER,WAITING FOR ORDERS
[2022-04-20 19:59] VITALS: BP 128/71
--- NOTE | 2022-04-20 19:59 | NUR ---
Patient discharged to home in stable condition. Written and verbal after care instructions given. Patient verbalizes understanding of instruction.
== END 2022-04-20 19:59 | disposition home or self-care (01) ==
LOC: ER 17:43
DX: R60.0 Localized edema (principal); I10 Essential (primary) hypertension; K21.9 Gastro-esophageal reflux disease without esophagitis; Z98.890 Other specified postprocedural states; Z88.1 Allergy status to other antibiotic agents; Z79.82 Long term (current) use of aspirin; Z79.899 Other long term (current) drug therapy
CPT/HCPCS: 93971-TC